=== PATIENT | male | born 1965 | race Two or more races ===

== ENCOUNTER 2025-07-14 08:15 | Inpatient (IN) | payer MEDICAID, OTHER ==
[~2025-07-14] VITALS: Ht 170.2 cm; Wt 89.5 kg
--- NOTE | 2025-07-14 09:02 | ED.PDOC ---
GI ASSESSMENT HPI Comments 60 year old male presents to the ED with a chief complaint of abdominal pain onset today (07/14/25) around midnight. Patient states he began experiencing diffused abdominal pain with intermittent radiation to LLQ as well as nausea, vomiting. Patient is a poor historian. Denies any PMHx as well as fever, chills, diarrhea, chest pain,shortness of breath, cough, cold, congestion. No other symptoms or modifying factor present at this time. Chief Complaint: Abdominal Pain Time Seen by MD: 08:50 Reviewed Notes: Medications, Allergies Allergies: Coded Allergies: NO KNOWN ALLERGIES (Unverified , 07/14/25) Information Source: Patient Mode of Arrival: Ambulatory Timing: Hours Duration: Since onset Prehospital treatment: None Quality: Sharp Severity: Moderate Recent: None Recent Hx of: None Pain Location: Diffuse Modifying Factors: Nothing Associated sign and symptoms: Nausea, Vomiting, Abdominal Pain Past Medical History PAST MEDICAL HISTORY: Denies Surgical History: Denies all surgeries Family History Family History: Reviewed,noncontributory to illness, No family hx of Cancer, No family hx of DM, No family hx of Heart mini, No family hx of HTN, No family hx ofKidney mini, No family hx of Liver mini, No family hx of Lung mini, No family hx of Stroke Social History Smoker: Non-Smoker Alcohol: Denies ETOH Use Drugs: Denies Drug Use Lives In: Home Constitutional: denies: chills, diaphoresis, fatigue, fever, malaise, sweats, weakness, others EENTM: denies: blurred vision, double vision, ear bleeding, ear discharge, ear drainage, ear pain, ear ringing, eye pain, eye redness, hearing loss, mouth pain, mouth swelling, nasal discharge, nose bleeding, nose congestion, nose pain, photophobia, tearing, throat pain, throat swelling, voice changes, others Respiratory: denies: cough, hemoptysis, orthopnea, SOB at rest, shortness of breath, SOB with excertion, stridor, wheezing, others Cardiovascular: denies: chest pain, dizzy spells, diaphoresis, Dyspnea on exertion, edema, irregular heart beat, left arm pain, lightheadedness, palpitations, PND, syncope, others Gastrointestinal: reports: abdominal pain, nausea, vomiting; denies: abdomen distended, blood streaked bowels, constipated, diarrhea, dysphagia, difficulty swallowing, hematemesis, melena, poor appetite, poor fluid intake, rectal bleeding, rectal pain, others Genitourinary: denies: burning, dysuria, flank pain, frequency, hematuria, incontinence, penile discharge, penile sore, pain, testicle pain, testicle swelling, urgency, others Neurological: denies: dizziness, fainting, headache, left sided numbness, left sided weakness, numbness, paresthesia, pre-existing deficit, right sided numbness, right sided weakness, seizure, speech problems, tingling, tremors, weakness, others Musculoskeletal: denies: back pain, gout, joint pain, joint swelling, muscle pain, muscle stiffness, neck pain, others Integumetry: denies: bruises, change in color, change in hair/nails, dryness, laceration, lesions, lumps, rash, wounds, others Allergic/Immunocompromised: denies: Difficulty Healing, Frequent Infections, Hives, Itching, others Hematologic/Lymphatic: denies: anemia, blood clots, easy bleeding, easy bruising, swollen glands, others Endocrine: denies: excessive hunger, excessive sweating, excessive thirst, excessive urination, flushing, intolerance to cold, intolerance to heat, unexplained weight gain, unexplained weight loss, others Psychiatric: denies: anxiety, bipolar disorder, depression, hopeless, panic disorder, schizophrenia, sleepless, suicidal, others All Other Systems: Reviewed and Negative Physical Exam General Appearance: Moderate Distress, Normal HEENT: Normal ENT Inspection, Pharynx Normal, TMs Normal Neck: Full Range of Motion, Non-Tender, Normal, Normal Inspection Respiratory: Chest Non-Tender, Lungs Clear, No Accessory Muscle Use, No Respiratory Distress, Normal Breath Sounds Cardiovascular: No Edema, No JVD, No Murmur, No Gallop, Normal Peripheral Pulses, Regular Rate/Rhythm Breast Exam: Deferred Gastrointestinal: No Organomegaly, Non Tender, No Pulsatile Mass, Normal Bowel Sounds, Soft Genitalia: Deferred Pelvic: Deferred Rectal: Deferred Extremities: No calf tenderness, Normal capillary refill, Normal inspection, Normal range of motion, Non-tender, No pedal edema Musculoskeletal : Apperance: Normal Neurologic: Alert, spring repairer helper hand II-XII nml as Tested, No Motor Deficits, Normal Affect, Normal Mood, No Sensory Deficits Cerebellar Function: Normal Reflexes: Normal Skin: Dry, Normal Color, Warm Peripheral Pulses: 3+ Radial (R), 3+ Radial (L) Lymphatic: No Adenopathy Was a procedure done? Was a procedure done?: No GI differential Dx Differential Diagnosis: Constipation, Diverticular disease, Esophagitis, Gastritis/PUD, Gastroenteritis X-Ray, Labs, Meds, VS Vital Signs Date Time Temp Pulse Resp B/P (MAP) Pulse Ox O2 Delivery O2 Flow Rate FiO2 07/14/25 08:54 97.9 83 18 136/78 95 97.9 Lab Test 07/14/25 09:10 Range/Units White Blood Count 18.1 H 4.4-10.8 10^3/uL Red Blood Count 5.58 4.5-5.90 10^6/uL Hemoglobin 15.7 13.5-17.5 g/dL Hematocrit 45.6 41.0-53.0 % Mean Corpuscular Volume 81.8 80.0-100.0 fL Mean Corpuscular Hemoglobin 28.2 28.0-32.0 pg Mean Corpuscular Hemoglobin Concent 34.5 32.0-36.0 g/dL Red Cell Distribution Width 14.0 11.8-14.3 % Platelet Count 199 140-450 10^3/uL Mean Platelet Volume 8.2 6.9-10.8 fL Neutrophils (%) (Auto) 90.0 H 37.0-80.0 % Lymphocytes (%) (Auto) 4.1 L 10.0-50.0 % Monocytes (%) (Auto) 5.6 0.0-12.0 % Eosinophils (%) (Auto) 0.0 0.0-7.0 % Basophils (%) (Auto) 0.3 0.0-2.0 % Neutrophils # (Auto) 16.3 H 1.6-8.6 10 ^3/uL Lymphocytes # (Auto) 0.7 0.4-5.4 10 ^3/uL Monocytes # (Auto) 1.0 0-1.3 10 ^3/uL Eosinophils # (Auto) 0 0-0.8 10 ^3/uL Basophils # (Auto) 0.1 0-0.2 10 ^3/uL Nucleated Red Blood Cells 0.1 % Sodium Level 135 L 136-145 mmol/L Potassium Level 3.6 3.5-5.1 mmol/L Chloride Level 98 98-107 mmol/L Carbon Dioxide Level 26 20-31 mmol/L Anion Gap 11 5-15 Blood Urea Nitrogen 8 L 9-23 mg/dL Creatinine 0.78 0.700-1.30 mg/dL Glomerular Filtration Rate Calc 103 >90 mL/min BUN/Creatinine Ratio 10.3 10.0-20.0 Serum Glucose 133 H 74-106 mg/dL Calcium Level 9.4 8.7-10.4 mg/dL Patient alert. Complaining of abdominal discomfort. Vitals stable. Answering questions. WBC elevated. Hemoglobin within normal limits. Establish intravenous access. Was given fluids. Was given Rocephin. Was given Flagyl. Continue monitoring. Time of 1ST Reevaluation: 09:20 Reevaluation 1ST: Unchanged Patient Education/Counseling: Diagnosis, Treatment, Prognosis Family Education/Counseling: No Family Present SEPSIS Sepsis Screen Date sepsis recognized/suspect: Jul 14, 2025 Time Sepsis recognized/suspect: 854 Recent Procedure: No On Antibiotic Therapy: No Respiratory Rate >20: No Heart Rate >90: No Temp<36 C (96.8 F) or >38.3 C: No SBP <90 or MAP <65 mmHG: No New Acute Mental Status Change: No Is the patient on CPAP, BIPAP,: No Physician Orders Ct Ab Pel Wo Con-No Oral Or Iv (07/14/25 10:26) Sodium Chloride 0.9% (07/14/25 10:30) Ceftriaxone 1gm/50ml (Rocephin) (07/14/25 10:30) Metronidazole 500mg/100ml (Flagyl 500mg/ (07/14/25 10:30) Vital Signs Date Time Temp Pulse Resp B/P (MAP) Pulse Ox O2 Delivery O2 Flow Rate FiO2 07/14/25 08:54 97.9 83 18 136/78 95 97.9 Laboratory Tests Test 07/14/25 09:10 White Blood Count 18.1 10^3/uL (4.4-10.8) H Departure 1 Departure Time of Disposition: 10:29 Impression: Primary Impression: Acute abdominal pain Disposition: ADMITTED INPATIENT Admit to: Med Surg Condition: Guarded Critical Care Note Critical Care Time?: No Stability Stability form required: No Heart Score Heart Score: Heart Score Response (Comments) Value History N/A 0 EKG N/A 0 Age N/A 0 Risk Factors N/A 0 Troponin N/A 0 Total 0 I personally scribed for RAMONA WHELAN MD ([email or web address]) on 07/14/25 at 09:02. Electronically submitted by Mimi Hurley ([email or web address]). RAMONA WHELAN MD Jul 14, 2025 09:02
[2025-07-14 09:27] LABS: Hematocrit 45.6 % (41.0-53.0); Hemoglobin 15.7 g/dL (13.5-17.5); Mean Corpuscular Hemoglobin 28.2 pg (28.0-32.0); Mean Corpuscular Volume 81.8 fL (80.0-100.0); Nucleated Red Blood Cells % 0.1 %
[2025-07-14 09:34] LABS: Chloride 98 mmol/L (98-107); Potassium 3.6 mmol/L (3.5-5.1)
[2025-07-14 09:35] LABS: Anion Gap 11 (5-15); Carbon Dioxide 26 mmol/L (20-31)
[2025-07-14 09:36] LABS: Calcium 9.4 mg/dL (8.7-10.4)
[2025-07-14 09:40] LABS: BUN/Creatinine Ratio 10.3 (10.0-20.0)
[2025-07-14 09:45] LABS: Blood Urea Nitrogen 8 mg/dL (9-23); Glucose 133 mg/dL (74-106); Sodium 135 mmol/L (136-145)
[2025-07-14] MEDS: SODIUM CHLORIDE 0.9% 1,000 ML IV ONE (10:30)
--- NOTE | 2025-07-14 11:12 | DVH ---
CLINICAL INFORMATION: Colitis. Abdominal pain. TECHNIQUE: Axial CT images of the abdomen and pelvis were obtained without IV contrast. Coronal and s agittal reformatted images were obtained, reviewed, and stored. Evaluation of the parenchymal organs is limited without IV contrast. Evaluation of the bowel and mesentery is limited without oral contras t. All CT scans at this medical facility are performed using dose modulation techniques as appropriat e to a performed exam including the following: Automated exposure control was utilized; adjustment of the MA and/or KV according to patient size; and use of iterative reconstruction technique. CTDIvol = 16.55 mGy DLP = 1045.26 mGy-cm COMPARISON: None FINDINGS: Lung bases: Mild atelectasis in the lung bases. Liver: Small subcentimeter low-density lesion in the posterior right hepatic lobe, possibly a cyst, b ut too small to characterize. Biliary: Moderately distended gallbladder with multiple peripherally calcified gallstones and mild ad jacent stranding. Gallbladder wall appears thickened. Possible trace pericholecystic fluid. No bilia ry ductal dilatation. Spleen: Unremarkable. Pancreas: Grossly unremarkable in its noncontrast enhanced appearance. Adrenal glands: Unremarkable. No mass. Kidneys: No hydronephrosis. No renal or ureteral calculi. Aorta/Vascular: Mild scattered atherosclerotic calcification. No abdominal aortic aneurysm. Retroperitoneum: No mass or lymphadenopathy. Bowel/mesentery: Nonspecific nondilated fluid-filled small bowel loops. No small bowel obstruction. A ppendix is thickened, measuring up to 0.9 cm in diameter. No periappendiceal stranding visualized to suggest acute appendicitis. Early acute appendicitis can not be completely excluded. Pelvic organs: Grossly unremarkable. Bladder: Unremarkable. No mass. Abdominal wall: Small fat containing indirect left inguinal hernia. Bones: No acute fracture or suspicious intraosseous lesion. IMPRESSION: 1. Distended gallbladder containing multiple peripherally calcified gallstones. Mild adjacent inflamm atory stranding. Gallbladder wall appears thickened. Possible trace pericholecystic fluid. Findings may be seen with acute cholecystitis in the appropriate clinical setting. Ultrasound could be obtain ed to further characterize. 2. Appendix is mildly thickened. No definite periappendiceal stranding visualized. Early acute appen dicitis can not be excluded in the appropriate clinical setting, given the thickened appendix. Corre late with clinical findings. 3. Nonspecific nondilated fluid-filled small bowel loops. Findings may be seen with ileus or enteriti s in the appropriate clinical setting. No small bowel obstruction. Critical findings Critical Result: Suspected acute cholecystitis. Thickened appendix, can not exclude early acute appen dicitis in the appropriate clinical setting. Findings discussed with RAMONA SALAS at 07/14/2025 01:09 PM CDT, and acknowledged receipt an d understanding of the findings. ..
--- NOTE | 2025-07-14 12:52 | DVH ---
INDICATION: roscoe ; abdominal pain called for acute cholecystitis TECHNIQUE: Multiple real-time sonographic images were obtained of the right upper quadrant. COMPARISON: 07/14/2025 FINDINGS: The liver demonstrates homogenous echotexture without focal mass lesions. The liver measure s 17 cm. There is no intrahepatic or extrahepatic ductal dilatation. The common duct measures 6 mm although evaluation is suboptimal given obscuration from bowel gas. Gallstones. The gallbladder wall measures 9 mm and is thickened . Sonographic Wilson's reportedly po sitive The right kidney measures 10 cm. The right kidney is normal in contour, size, and shape. The echogen icity is normal. There is no hydronephrosis. The pancreas is not well visualized due to overlying bowel gas. IMPRESSION: Gallstones with gallbladder wall thickening. Sonographic Wilson's reportedly positive. Findings can be seen in the setting of acute cholecystitis.
--- NOTE | 2025-07-14 14:18 | DVHINCON2 ---
Consultation - Surgical Date Seen: Jul 14, 2025 Referring Physician Reason for Consultation Cholecystitis History of Present Illness History of Present Illness Mr. Herr is a 60-year-old male who presents to the ED after 3 days of right- sided abdominal pain patient states that the pain is associated with nausea but no vomiting. Since the pain started he also has been constipated, usually goes to the bathroom daily. His last BM was 2 days ago. Endorses subjective fevers, denies vomiting and changes in urinary habits. Denies acholic stools, darkening of urine, yellowing of eyes. States that the pain is worse when he lays flat, but since arriving into the ED in getting the antibiotics he has been feeling better and abdomen is not as painful. Past Medical/Surgical History Past Medical/Surgical History PMH/PSH denies Family and Social History Family and Social History Family history noncontributory ETOH/T Ob/drugs denies Allergies and medications Allergies: Coded Allergies: NO KNOWN ALLERGIES (Unverified , 07/14/25) Review of systems Review of Systems: Deferred Examination Vital signs Vital Signs Date Time Temp Pulse Resp B/P (MAP) Pulse Ox O2 Delivery O2 Flow Rate FiO2 07/14/25 11:17 74 18 97 Room Air 07/14/25 11:17 153/78 (103) 07/14/25 08:54 97.9 97.9 Laboratory Labs Test 07/14/25 09:10 Range/Units White Blood Count 18.1 H 4.4-10.8 10^3/uL Red Blood Count 5.58 4.5-5.90 10^6/uL Hemoglobin 15.7 13.5-17.5 g/dL Hematocrit 45.6 41.0-53.0 % Mean Corpuscular Volume 81.8 80.0-100.0 fL Mean Corpuscular Hemoglobin 28.2 28.0-32.0 pg Mean Corpuscular Hemoglobin Concent 34.5 32.0-36.0 g/dL Red Cell Distribution Width 14.0 11.8-14.3 % Platelet Count 199 140-450 10^3/uL Mean Platelet Volume 8.2 6.9-10.8 fL Neutrophils (%) (Auto) 90.0 H 37.0-80.0 % Lymphocytes (%) (Auto) 4.1 L 10.0-50.0 % Monocytes (%) (Auto) 5.6 0.0-12.0 % Eosinophils (%) (Auto) 0.0 0.0-7.0 % Basophils (%) (Auto) 0.3 0.0-2.0 % Neutrophils # (Auto) 16.3 H 1.6-8.6 10 ^3/uL Lymphocytes # (Auto) 0.7 0.4-5.4 10 ^3/uL Monocytes # (Auto) 1.0 0-1.3 10 ^3/uL Eosinophils # (Auto) 0 0-0.8 10 ^3/uL Basophils # (Auto) 0.1 0-0.2 10 ^3/uL Nucleated Red Blood Cells 0.1 % Sodium Level 135 L 136-145 mmol/L Potassium Level 3.6 3.5-5.1 mmol/L Chloride Level 98 98-107 mmol/L Carbon Dioxide Level 26 20-31 mmol/L Anion Gap 11 5-15 Blood Urea Nitrogen 8 L 9-23 mg/dL Creatinine 0.78 0.700-1.30 mg/dL Glomerular Filtration Rate Calc 103 >90 mL/min BUN/Creatinine Ratio 10.3 10.0-20.0 Serum Glucose 133 H 74-106 mg/dL Calcium Level 9.4 8.7-10.4 mg/dL Examination: GENERAL:Normal, HEENT:Normal (No icterus), ABDOMEN:Abnormal (Nondistended, no scars, soft, depressible, right hemiabdomen tenderness worse in the right midabdomen, no rebound, no guarding) Problem List/Assessment/Plan Problems: (1) Cholecystitis Assessment and Plan Mr. Herr is a 60-year-old male who presented with abdominal pain for the last 3 days to the ED. ultrasound was done and it shows 3 large gallstones within the lumen of the gallbladder and 1 of them being at the neck of the gallbladder, pericholecystic fluid is seen, also has gallbladder wall thickening to a 0.6 mm. These findings are consistent with acute cholecystitis. I also reviewed the patient's CT, on the CT the appendix appears a little bit inflamed with some stranding around it no fecalith seen. Given both the ultrasound CT findings and coupled with the physical exam patient likely has acute cholecystitis, he may also have a component of early acute appendicitis. Patient will benefit from diagnostic laparoscopy, laparoscopic cholecystectomy, and possible appendectomy. I explained the findings in detail to the patient and what my recommendations were. Patient does not want to have surgery at this point he will rather attempt nonsurgical management with antibiotics. I also explained that if we wait gallbladder can get more inflamed, which can make it dangerous for surgical removal and thus we might end up putting a roscoe tube instead. Also explained that if he does have appendicitis, inflammation good continue to progress and he could end up with perforated appendicitis. Patient understood everything and still wants to proceed with nonoperative management at this point. Recommend admission for nonoperative management. 1. Okay for clear liquid diet 2. NPO at midnight 3. Continue with IV antibiotics ceftriaxone and Flagyl 4. A.m. labs: CBC, CMP, direct bilirubin level Plan discussed with Plan discussed with: Patient Visit Coding Surgery Date of Service if different f: Jul 14, 2025 Billing Provider: MICHELLE ARTHUR MD Surgery Visit Codes: 44980 - INP CONSULT <110 MIN MICHELLE ARTHUR MD Jul 14, 2025 14:17
[2025-07-14] MEDS ORDERED: ACETAMINOPHEN 325 MG TAB PO PRN (15:00)
[2025-07-14] MEDS ORDERED: NITROGLYCERIN 0.4 MG SL TAB SL PRN (15:00)
[2025-07-14] MEDS ORDERED: ONDANSETRON HCL 4 MG/2 ML VIAL IV PRN (15:00)
[2025-07-14] MEDS ORDERED: MORPHINE SULFATE INJ 2 MG/ml SYRG IV PRN (15:00)
--- NOTE | 2025-07-14 15:39 | DVHHPRES ---
History of Present Illness Resident Creating Document: FELIX CALDERON RESIDENT History of Present Illness Fareed Herr is a 60-year-old male presented to the ED with a chief complaint of pain abdomen since 3 days. The patient mentions he had pain in the abdomen mostly in the right lower abdomen, radiating to the right upper abdomen and epigastric area. The patient mentions that the pain increased with eating, also has had decreased appetite in the last 3 days because of the pain. Describes the pain as an 8/10 in intensity and a dull ache. He states that the pain is mo stly at night and he can not sleep because of the pain. He took Tylenol but it did not relieve the pain. The patient also mentions he has not had a bowel movement in the last 3 days and right side of the abdomen feels hard and warm. He had some fever at home which was unrecorded. He has a history of similar abdominal pain 2 months back which resolved on its own in a couple of days. Past medical history: None Past surgical history: None Social & Personal history: Lives at home with family Smoking: Denies Alcohol: Occasional consumption, quit 20 years back Drugs: Denies Allergies: No known allergies Past Surgical History: None Smoke: No Drugs: None Review of Systems Review of Systems Patient seen and examined at bedside. Patient is alert and oriented to time, p lace person and responding to all questions. Eyes: No Pain, No Vision change, No Conjunctivae inflammation, No Eyelid inflammation, No Redness ENT: No Ear pain, No Ear discharge, No Nose pain, No Nose discharge, No Nose congestion, No Mouth pain, No Mouth swelling, No Throat pain, No Throat swelling Cardiovascular: No Chest Pain, No Palpitations, No Orthopnea, No Paroxysmal No Dyspnea, No Edema, No Lt Headedness Respiratory: No Cough, No Dry, No Shortness of breath, No SOB with exertion, No Wheezing, No Hemoptysis, No Pleuritic Pain, No Sputum Gastrointestinal: No Nausea, No Vomiting, Abdominal Pain, No Diarrhea, Constipation, No Melena, No Hematochezia Genitourinary: No Dysuria, No Frequency, No Incontinence, No Hematuria, No Retention Gastrointestinal: Abdominal Pain, Constipation Allergies: Coded Allergies: NO KNOWN ALLERGIES (Unverified , 07/14/25) Medications Current Medications Medications Dose Ordered Sig/Petey Route Start Time Stop Time Status Last Admin Dose Admin Sodium Chloride 1,000 ml @ 60 mls/hr [id number] IV 07/14/25 15:00 UNV Ondansetron HCl 4 mg Q4HP PRN IV 07/14/25 15:00 UNV Acetaminophen 650 mg Q6HP PRN PO 07/14/25 15:00 UNV Nitroglycerin 0.4 mg Q5MINP PRN SL 07/14/25 15:00 UNV Morphine Sulfate 2 mg Q30M PRN IV 07/14/25 15:00 UNV Exam Vital Signs Vital Signs Date Time Temp Pulse Resp B/P (MAP) Pulse Ox O2 Delivery O2 Flow Rate FiO2 07/14/25 11:17 74 18 97 Room Air 07/14/25 11:17 153/78 (103) 07/14/25 08:54 97.9 97.9 Exam General Appearance: Cooperative. Well developed. Well nourished. NAD Head Exam: Normal inspection Neck Exam: Normal inspection. Non-tender. Normal alignment Pulmonary/Respiratory: Chest non-tender. Clear bilateral breath sounds, no crackles, no wheezing. Cardiovascular/Chest: Regular rate and rhythm. No murmurs. No JVD. Peripheral Pulses: 2+ Radial (R). 2+ Radial (L). 2+ Pedal (R). 2+ Pedal (L) Abdominal Exam: Tenderness in the right upper quadrant, Normal bowel sounds no visible veins, No hepatospenomegaly. No masses Ankle Exam: Negative ankle edema Lower extremities: Negative lower extremity edema Neuro/Mental Status: A&O x4. Coherent. Thoughts/Psych: Normal thought pattern. Appropriate mood and affect. Good judgement and insight Skin Exam: Normal inspection. Normal color. Warm. Dry Labs/Xrays Labs Test 07/14/25 09:10 Range/Units White Blood Count 18.1 H 4.4-10.8 10^3/uL Red Blood Count 5.58 4.5-5.90 10^6/uL Hemoglobin 15.7 13.5-17.5 g/dL Hematocrit 45.6 41.0-53.0 % Mean Corpuscular Volume 81.8 80.0-100.0 fL Mean Corpuscular Hemoglobin 28.2 28.0-32.0 pg Mean Corpuscular Hemoglobin Concent 34.5 32.0-36.0 g/dL Red Cell Distribution Width 14.0 11.8-14.3 % Platelet Count 199 140-450 10^3/uL Mean Platelet Volume 8.2 6.9-10.8 fL Neutrophils (%) (Auto) 90.0 H 37.0-80.0 % Lymphocytes (%) (Auto) 4.1 L 10.0-50.0 % Monocytes (%) (Auto) 5.6 0.0-12.0 % Eosinophils (%) (Auto) 0.0 0.0-7.0 % Basophils (%) (Auto) 0.3 0.0-2.0 % Neutrophils # (Auto) 16.3 H 1.6-8.6 10 ^3/uL Lymphocytes # (Auto) 0.7 0.4-5.4 10 ^3/uL Monocytes # (Auto) 1.0 0-1.3 10 ^3/uL Eosinophils # (Auto) 0 0-0.8 10 ^3/uL Basophils # (Auto) 0.1 0-0.2 10 ^3/uL Nucleated Red Blood Cells 0.1 % Sodium Level 135 L 136-145 mmol/L Potassium Level 3.6 3.5-5.1 mmol/L Chloride Level 98 98-107 mmol/L Carbon Dioxide Level 26 20-31 mmol/L Anion Gap 11 5-15 Blood Urea Nitrogen 8 L 9-23 mg/dL Creatinine 0.78 0.700-1.30 mg/dL Glomerular Filtration Rate Calc 103 >90 mL/min BUN/Creatinine Ratio 10.3 10.0-20.0 Serum Glucose 133 H 74-106 mg/dL Calcium Level 9.4 8.7-10.4 mg/dL SEPSIS Sepsis Screen Date sepsis recognized/suspect: Jul 14, 2025 Time Sepsis recognized/suspect: 854 Recent Procedure: No On Antibiotic Therapy: No Respiratory Rate >20: No Heart Rate >90: No Temp<36 C (96.8 F) or >38.3 C: No SBP <90 or MAP <65 mmHG: No New Acute Mental Status Change: No Is the patient on CPAP, BIPAP,: No Physician Orders Ct Ab Pel Wo Con-No Oral Or Iv (07/14/25 10:26) Gallbladder (07/14/25 12:02) * Surgical Consult (07/14/25 ) Admit (07/14/25 14:48) Allergies (07/14/25 14:48) Code Status (07/14/25 14:48) Sodium Chloride 0.9% (07/14/25 15:00) Ondansetron Hcl (Zofran) (07/14/25 15:00) Complete Blood Count (07/15/25 04:00) Comprehensive Metabolic Panel (07/15/25 04:00) Npo (Nothing By Mouth) Diet (07/14/25 Dinner) Condition: Fair (07/14/25 14:48) Acetaminophen Tablet (Tylenol Tablet) (07/14/25 15:00) Nitroglycerin Sublingual (Ntrostat Subli (07/14/25 15:00) Morphine Sulfate Injection (07/14/25 15:00) Oxygen By Nasal Cannula (07/14/25 14:48) Stat Ekg For Chest Pain (07/14/25 14:48) Notify Md Of Changes From Base (07/14/25 14:48) Contract Paralegal For 24 Hours (07/14/25 14:48) Emergency Dysrhythmia Protocol (07/14/25 14:48) Rhythm Strips Once Every Shift (07/14/25 14:48) Hepatic Panel (07/14/25 15:25) Covid19 Antigen Татьяна (07/14/25 ) Rapid Influenza A&B (07/14/25 15:25) Lactic Acid W/ Reflex Order (07/14/25 15:25) Urinalysis (07/14/25 15:25) Hemoglobin A1c (07/14/25 15:25) Vital Signs Date Time Temp Pulse Resp B/P (MAP) Pulse Ox O2 Delivery O2 Flow Rate FiO2 07/14/25 11:17 74 18 97 Room Air 07/14/25 11:17 78 16 153/78 (103) 97 07/14/25 08:54 97.9 83 18 136/78 95 97.9 Laboratory Tests Test 07/14/25 09:10 White Blood Count 18.1 10^3/uL (4.4-10.8) H Medications Medications Dose Ordered Sig/Petey Route Start Time Stop Time Status Last Admin Dose Admin Metronidazole 100 ml @ 100 mls/hr ONCE ONCE IV 07/14/25 10:30 07/14/25 11:29 DC 07/14/25 14:08 100 MLS/HR Sodium Chloride 1,000 ml @ 1,000 mls/hr Q1H ONCE IV 07/14/25 10:30 07/14/25 11:29 DC 07/14/25 10:30 1,000 MLS/HR Assessment/Plan Assessment/Plan Acute calculous cholecystitis -CT abdomen/pelvis-Distended gallbladder containing multiple peripherally calcified gallstones. Mild adjacent inflammatory stranding. Gallbladder wall appears thickened. -Gall bladder ultrasound- Gallstones with gallbladder wall thickening. Sono graphic Wilson's reportedly positive. -white count 18.1 -pain management -IV antibiotics ceftriaxone and flagyl -clear liquids for now -keep NPO after midnight -Surgical consult Possible Acute appendicitis -CT abdomen/pelvis-Appendix is mildly thickened. No definite periappendiceal stranding visualized. Early acute appendicitis can not be excluded in the appr [facility] clinical setting, given the thickened appendix. -as above PUD prophylaxis: not Indicated DVT prophylaxis: Not indicated Goals of care: Full code, discussed for >23 minutes Plan discussed with patient Plan discussed with Dr Contreras Plan discussed with: Patient My Orders Orders - FELIX CALDERON RESIDENT Procedure Category Date Status Time Admit ADMIT 07/14/25 Transmitted 14:48 Allergies [facility] 07/14/25 In Process 14:48 Code Status CODE 07/14/25 Transmitted 14:48 Sodium Chloride 0.9% PHA 07/14/25 Logged 15:00 Ondansetron Hcl PHA 07/14/25 Logged (Zofran) 15:00 Complete Blood Count LAB 07/15/25 Verified 04:00 Comprehensive LAB 07/15/25 Verified Metabolic Panel 04:00 Npo (Nothing By DIET 07/14/25 Transmitted Mouth) Diet Dinner Condition: Fair BOBBY 07/14/25 In Process 14:48 Acetaminophen Tablet PHA 07/14/25 Logged (Tylenol Tablet) 15:00 Nitroglycerin PHA 07/14/25 Logged Sublingual (Ntrostat 15:00 Morphine Sulfate PHA 07/14/25 Logged Injection 15:00 Oxygen By Nasal RT 07/14/25 Transmitted Cannula 14:48 Stat Ekg For Chest BOBBY 07/14/25 In Process Pain 14:48 Notify Of Changes BOBBY 07/14/25 In Process From Base 14:48 Contract Paralegal For [facility] 07/14/25 In Process 24 Hours 14:48 Emergency Dysrhythmia BOBBY 07/14/25 In Process Protocol 14:48 Rhythm Strips Once BOBBY 07/14/25 In Process Every Shift 14:48 Hepatic Panel LAB 07/14/25 In Process 15:25 Covid19 Antigen Татьяна LAB 07/14/25 Logged Rapid Influenza A&B LAB 07/14/25 Logged 15:25 Lactic Acid W/ Reflex LAB 07/14/25 Logged Order 15:25 Urinalysis LAB 07/14/25 Logged 15:25 Hemoglobin A1c LAB 07/14/25 In Process 15:25 FELIX CALDERON RESIDENT Jul 14, 2025 15:39 SEAN ESTRADA RESIDENT Jul 14, 2025 19:01
[2025-07-14 16:03] LABS: Alanine Aminotransferase 17.0 U/L (7-40); Albumin 4.4 g/dL (3.2-4.8); Alkaline Phosphatase 77.0 U/L (46-116); Total Protein 8.2 g/dL (5.7-8.2)
[2025-07-14 16:09] LABS: Bilirubin, Direct 0.8 mg/dL (<0.3); Bilirubin, Total 2.3 mg/dL (0.2-1.0)
[2025-07-14 20:22] LABS: INR 1.22 (0.9-1.15); Partial Thromboplastin Time 34.3 SEC (24.5-34.5); Prothrombin Time 12.7 sec (9.3-11.8)
--- NOTE | 2025-07-14 21:17 | DVH ---
CHEST RADIOGRAPH Indication: preop Technique: Single frontal view of the chest was obtained Comparison: None FINDINGS: Lines and Tubes: None Lungs: No focal consolidation. Pleura: No effusion. No pneumothorax. Cardiomediastinal contours: Unremarkable Bones: No acute osseous abnormality. IMPRESSION: 1. No acute cardiopulmonary disease.
[2025-07-14] MEDS: SODIUM CHLORIDE 0.9% 1,000 ML IV SCH (22:48)
[2025-07-15 08:59] LABS: Hematocrit 43.8 % (41.0-53.0); Hemoglobin 14.8 g/dL (13.5-17.5); Mean Corpuscular Hemoglobin 27.8 pg (28.0-32.0); Mean Corpuscular Volume 82.4 fL (80.0-100.0); Nucleated Red Blood Cells % 0.1 %
[2025-07-15 09:00] VITALS: BP 119/80; PULSE 94; RESP 18; TEMP 97.8; O2SAT 97
[2025-07-15 09:17] LABS: Alanine Aminotransferase 16 U/L (7-40); Alkaline Phosphatase 74 U/L (46-116); Calcium 9.0 mg/dL (8.7-10.4)
[2025-07-15 09:18] LABS: Albumin 4.1 g/dL (3.2-4.8); Anion Gap 10 (5-15); BUN/Creatinine Ratio 12.7 (10.0-20.0); Blood Urea Nitrogen 10 mg/dL (9-23); Carbon Dioxide 25 mmol/L (20-31); Chloride 100 mmol/L (98-107); Potassium 3.6 mmol/L (3.5-5.1); Total Protein 7.8 g/dL (5.7-8.2)
[2025-07-15 09:19] LABS: Bilirubin, Total 1.6 mg/dL (0.2-1.0); Glucose 107 mg/dL (74-106); Sodium 135 mmol/L (136-145)
[2025-07-15 12:08] LABS: COVID19 ANTIGEN SOFIA FIA NEGATIVE (NEGATIVE)
[2025-07-15 13:00] VITALS: BP 122/86; PULSE 99; RESP 18; TEMP 97.8; O2SAT 97
[2025-07-15 15:07] VITALS: BP 146/76; PULSE 75; RESP 18; TEMP 98.5; O2SAT 99
--- NOTE | 2025-07-15 15:23 | DVHPNRES ---
Progress Note Date Seen: Jul 15, 2025 Resident Creating Document: FELIX CALDERON RESIDENT Medical Necessity Reason Pt with a Central, PICC or Fol: No Subjective Review of Systems Fareed Herr is a 60-year-old male presented to the ED with a chief complaint of pain abdomen since 3 days. The patient mentions he had pain in the abdomen mostly in the right lower abdomen, radiating to the right upper abdomen and epigastric area. The patient mentions that the pain increased with eating, also has had decreased appetite in the last 3 days because of the pain. Describes the pain as an 8/10 in intensity and a dull ache. He states that the pain is mostly at night and he can not sleep because of the pain. He took Tylenol but it did not relieve the pain. The patient also mentions he has not had a bowel movement in the last 3 days and right side of the abdomen feels hard and warm. He had some fever at home which was unrecorded. He has a history of similar abdominal pain 2 months back which resolved on its own in a couple of days. Past medical history: None Past surgical history: None Social & Personal history: Lives at home with family Smoking: Denies Alcohol: Occasional consumption, quit 20 years back Drugs: Denies Allergies: No known allergies Past Surgical History: None Smoke: No Drugs: None Patient seen and examined at bedside. Patient is alert and oriented to time, place person and responding to all questions. Eyes: No Pain, No Vision change, No Conjunctivae inflammation, No Eyelid inflammation, No Redness ENT: No Ear pain, No Ear discharge, No Nose pain, No Nose discharge, No Nose congestion, No Mouth pain, No Mouth swelling, No Throat pain, No Throat swelling Cardiovascular: No Chest Pain, No Palpitations, No Orthopnea, No Paroxysmal No Dyspnea, No Edema, No Lt Headedness Respiratory: No Cough, No Dry, No Shortness of breath, No SOB with exertion, No Wheezing, No Hemoptysis, No Pleuritic Pain, No Sputum Gastrointestinal: No Nausea, No Vomiting, Abdominal Pain, No Diarrhea, Constipation, No Melena, No Hematochezia Genitourinary: No Dysuria, No Frequency, No Incontinence, No Hematuria, No Retention Gastrointestinal: Abdominal Pain, Constipation Allergies: Coded Allergies: NO KNOWN ALLERGIES (Unverified , 07/14/25) 07/15- On evaluation today, the patient stated that the abdominal pain had reduced. White count today was 15.5. He was explained about recurrent symptoms if he does not get the surgery, but the patient stated that he would not like to have the surgery and would want to proceed only with IV antibiotics. Patient will possibly be discharged tomorrow if he is clinically stable. Objective vital signs Vital Sign Date Time Temp Pulse Resp B/P (MAP) Pulse Ox O2 Delivery O2 Flow Rate FiO2 07/15/25 14:04 98.3 78 20 148/77 (100) 97 98.3 07/15/25 03:29 Room Air medications Current Medications Medications Dose Ordered Sig/Petey Route Start Time Stop Time Status Last Admin Dose Admin Sodium Chloride 1,000 ml @ 60 mls/hr [id number] IV 07/14/25 15:00 Ondansetron HCl 4 mg Q4HP PRN IV 07/14/25 15:00 Acetaminophen 650 mg Q6HP PRN PO 07/14/25 15:00 Nitroglycerin 0.4 mg Q5MINP PRN SL 07/14/25 15:00 Morphine Sulfate 2 mg Q30M PRN IV 07/14/25 15:00 Ceftriaxone Sodium 50 ml @ 100 mls/hr DAILY@09 IV 07/15/25 09:00 07/15/25 09:44 100 MLS/HR Metronidazole 100 ml @ 100 mls/hr Q8HR IV 07/14/25 22:00 07/15/25 09:44 100 MLS/HR Examination General Appearance: Cooperative. Well developed. Well nourished. NAD Head Exam: Normal inspection Neck Exam: Normal inspection. Non-tender. Normal alignment Pulmonary/Respiratory: Chest non-tender. Clear bilateral breath sounds, no crackles, no wheezing. Cardiovascular/Chest: Regular rate and rhythm. No murmurs. No JVD. Peripheral Pulses: 2+ Radial (R). 2+ Radial (L). 2+ Pedal (R). 2+ Pedal (L) Abdominal Exam: Tenderness in the right upper quadrant, Normal bowel sounds no visible veins, No hepatospenomegaly. No masses Ankle Exam: Negative ankle edema Lower extremities: Negative lower extremity edema Neuro/Mental Status: A&O x4. Coherent. Thoughts/Psych: Normal thought pattern. Appropriate mood and affect. Good judgement and insight Skin Exam: Normal inspection. Normal color. Warm. Dry laboratory and microbiology Laboratory Tests 07/15/25 08:46 Test 07/15/25 08:46 Range/Units Serum Glucose 107 H 74-106 mg/dL Labs and/or images reviewed: Labs reviewed by me, Image(s) reviewed by me Problem List/Assessment/Plan Problem List/Assessment/Plan Acute calculous cholecystitis -CT abdomen/pelvis-Distended gallbladder containing multiple peripherally calcified gallstones. Mild adjacent inflammatory stranding. Gallbladder wall appears thickened. -Gall bladder ultrasound- Gallstones with gallbladder wall thickening. Sonographic Wilson's reportedly positive. -white count 15.5 -pain management -IV antibiotics ceftriaxone and flagyl -clear liquids for now -keep NPO after midnight -Surgical consult Possible Acute appendicitis -CT abdomen/pelvis-Appendix is mildly thickened. No definite periappendiceal stranding visualized. Early acute appendicitis can not be excluded in the appropriate clinical setting, given the thickened appendix. -as above PUD prophylaxis: not Indicated DVT prophylaxis: Not indicated Goals of care: Full code, discussed for >23 minutes Plan discussed with patient Plan discussed with Dr Contreras Plan discussed with: Patient My Orders My Orders Orders - FELIX CALDERON RESIDENT Procedure Category Date Status Time Urinalysis LAB 07/14/25 Logged 15:25 Ceftriaxone 1gm/50ml PHA 07/15/25 In Process (Rocephin) 09:00 Metronidazole PHA 07/14/25 In Process 500mg/100ml (Flagyl 22:00 FELIX CALDERON RESIDENT Jul 15, 2025 15:23
--- NOTE | 2025-07-15 16:29 | DVHPN2 ---
Progress Note - Surgical Objective Vital signs Vital Sign Date Time Temp Pulse Resp B/P (MAP) Pulse Ox O2 Delivery O2 Flow Rate FiO2 07/15/25 15:07 75 18 99 Room Air* 0 21 07/15/25 15:07 98.5 146/76 (99) 98.5 Medications Current Medications Medications Dose Ordered Sig/Petey Route Start Time Stop Time Status Last Admin Dose Admin Sodium Chloride 1,000 ml @ 60 mls/hr [id number] IV 07/14/25 15:00 Ondansetron HCl 4 mg Q4HP PRN IV 07/14/25 15:00 Acetaminophen 650 mg Q6HP PRN PO 07/14/25 15:00 Nitroglycerin 0.4 mg Q5MINP PRN SL 07/14/25 15:00 Morphine Sulfate 2 mg Q30M PRN IV 07/14/25 15:00 Ceftriaxone Sodium 50 ml @ 100 mls/hr DAILY@09 IV 07/15/25 09:00 07/15/25 09:44 100 MLS/HR Metronidazole 100 ml @ 100 mls/hr Q8HR IV 07/14/25 22:00 07/15/25 09:44 100 MLS/HR Laboratory Laboratory Tests 07/15/25 08:46 Test 07/15/25 08:46 Range/Units Serum Glucose 107 H 74-106 mg/dL Problem List/Assessment/Plan Assessment and Plan Went to see the patient in the ED, he was supposed to be in the lobby, I was not able to localize the patient. Patient was not seen MICHELLE ARTHUR MD Jul 15, 2025 16:29
[2025-07-15 17:00] VITALS: BP 140/78; PULSE 76; RESP 16; TEMP 99.5; O2SAT 95
[2025-07-15 21:00] VITALS: BP 122/61; PULSE 85; RESP 16; TEMP 99; O2SAT 94
[2025-07-16] VITALS (8 sets, daily range): BP systolic 120–154; BP diastolic 53–82; PULSE 67–83; RESP 12–18; TEMP 98.3–99.5; O2SAT 95–99
[2025-07-16 06:30] LABS: Anion Gap 14 (5-15); Carbon Dioxide 23 mmol/L (20-31); Chloride 100 mmol/L (98-107); Potassium 3.2 mmol/L (3.5-5.1); Sodium 137 mmol/L (136-145)
[2025-07-16 06:31] LABS: Calcium 8.9 mg/dL (8.7-10.4)
[2025-07-16 06:36] LABS: BUN/Creatinine Ratio 15.1 (10.0-20.0); Blood Urea Nitrogen 11 mg/dL (9-23); Glucose 92 mg/dL (74-106)
[2025-07-16 06:46] LABS: Hematocrit 40.3 % (41.0-53.0); Hemoglobin 13.7 g/dL (13.5-17.5); Mean Corpuscular Hemoglobin 28.1 pg (28.0-32.0); Mean Corpuscular Volume 82.4 fL (80.0-100.0); Nucleated Red Blood Cells % 0.0 %
[2025-07-16] MEDS: POTASSIUM CHL 20MEQ/100ML 100 ML IV SCH (08:40)
--- NOTE | 2025-07-16 12:05 | DVHPN2 ---
Progress Note - Surgical Date Seen: Jul 16, 2025 Post op day Post op day: 0 Subjective Patient reports: Feels better (Feels slightly better still having right upper quadrant abdominal pain, right lower quadrant pain has subsided.) Review of Systems: Deferred Objective Vital signs Vital Sign Date Time Temp Pulse Resp B/P (MAP) Pulse Ox O2 Delivery O2 Flow Rate FiO2 07/16/25 09:00 98.4 67 18 139/53 (81) 96 98.4 07/16/25 08:00 Room Air* 0 21 Total Intake and Output 07/15/25 07/15/25 07/16/25 15:00 23:00 07:00 Intake Total 1120 ml 0 ml 480 ml Balance 1120 ml 0 ml 480 ml Medications Current Medications Medications Dose Ordered Sig/Petey Route Start Time Stop Time Status Last Admin Dose Admin Sodium Chloride 1,000 ml @ 60 mls/hr [id number] IV 07/14/25 15:00 07/16/25 00:20 60 MLS/HR Ondansetron HCl 4 mg Q4HP PRN IV 07/14/25 15:00 Acetaminophen 650 mg Q6HP PRN PO 07/14/25 15:00 Nitroglycerin 0.4 mg Q5MINP PRN SL 07/14/25 15:00 Morphine Sulfate 2 mg Q30M PRN IV 07/14/25 15:00 Ceftriaxone Sodium 50 ml @ 100 mls/hr DAILY@09 IV 07/15/25 09:00 07/16/25 10:59 100 MLS/HR Metronidazole 100 ml @ 100 mls/hr Q8H IV 07/16/25 15:00 Laboratory Laboratory Tests 07/16/25 05:40 Test 07/16/25 05:40 Range/Units Serum Glucose 92 74-106 mg/dL Examination: GENERAL:Normal, ABDOMEN:Abnormal (Nondistended, soft, depressible, mild right upper quadrant tenderness, no rebound, no guarding) Problem List/Assessment/Plan Assessment and Plan Mr. Herr is a 60-year-old male who presented 2 days ago to the ED with right upper quadrant abdominal pain and a diagnosis of acute cholecystitis. On CT imaging patient also had borderline inflammation of the appendix. At that time I offered laparoscopic cholecystectomy with additional possible appendectomy, depending on the health of the appendix looked intraoperatively. Patient wanted to trial antibiotics only without surgical intervention. Pain has improved but patient still has a white count of 12 and has not been able to eat anything. Today again I also offered surgery, and patient is amenable to surgical intervention. I will consent the patient for laparoscopic cholecystectomy, possible open, and possible laparoscopic appendectomy (depending on how the appendix looks intraoperatively). 1. Booked for laparoscopic cholecystectomy, possible open, and possible laparoscopic appendectomy 2. NPO 3. IV antibiotics Plan discussed with Plan discussed with: Patient Visit Coding Surgery Date of Service if different f: Jul 16, 2025 Billing Provider: MICHELLE ARTHUR MD Surgery Visit Codes: [id number] INP/OBS CARE(HIGH) MICHELLE ARTHUR MD Jul 16, 2025 12:05
[2025-07-16] MEDS ORDERED: SUCCINYLCHOLINE CHLORIDE 20 MG/ML 10ML VIAL IV ONE (12:27)
[2025-07-16] MEDS ORDERED: fentaNYL CITRATE 100 MCG/2 ML VL ONE (12:34)
[2025-07-16] MEDS ORDERED: PROPOFOL 10 MG/ML 20 ML IV ONE (12:34)
[2025-07-16] MEDS ORDERED: HYDROmorphone HCL 2 MG/ML VL/or syr ONE (12:35)
[2025-07-16] MEDS ORDERED: ONDANSETRON HCL 4 MG/2 ML VIAL ONE (13:33)
[2025-07-16] MEDS: BUPIVACAINE 0.25% INJ 50ML VIAL ONE (13:35)
[2025-07-16] MEDS ORDERED: SUGAMMADEX 200mg/2ml Vial (100MG/ML) IV ONE (16:05)
[2025-07-16] MEDS ORDERED: ACETAMINOPHEN IV 1000 MG/100ML (10MG/ML) IV PRN (16:30)
[2025-07-16] MEDS ORDERED: ONDANSETRON HCL 4 MG/2 ML VIAL IV PRN (16:30)
[2025-07-16] MEDS ORDERED: HYDROmorphone HCL 2 MG/ML VL/or syr IV PRN (16:30)
--- NOTE | 2025-07-16 16:39 | DVHOP2 ---
Operative Report - 2 Report Details Date: 07/16/25 Preop Diagnosis: Acute cholecystitis with possible acute appendicitis Postop Diagnosis: Acute cholecystitis Surgeon: Mohan Hutchinson MD Anesthesiologist: Anesthesia: General Drains: 19 Maltese round channel drain Consent: The patient was informed of the risks and benefits of the procedure. These include but are not limited to complications of anesthesia, postoperative infection, incomplete relief of symptoms, recurrence of symptoms, damage to blood vessels, nerves and tendons, deep venous thrombosis, pulmonary embolism and possible need for repeat surgery in the future. Complications: None Estimated Blood Loss: 100 mL Findings: Severely inflamed acute and gangrenous cholecystitis, omentum and bowel draped over gallbladder, right lateral abdominal wall adhesions Indications for Surgery: Acute cholecystitis Name of Procedure Performed Laparoscopic cholecystectomy Procedure Details Procedure Details: Upon arrival to the operating room the patient was transferred to the operating table and placed in the supine position with arms extended. General endotracheal anesthesia was induced. Time-out was observed. Patient was prepped and draped in the standard sterile surgical fashion with chlorhexidine. I then made a curvilinear infraumbilical incision and carried out the dissection to fascia. I then grasped the umbilical stalk with Gogo clamps and walked it to its base. I then gained entry into the peritoneal cavity using Cyr technique. I then placed a [id number] retention suture with a 0 Vicryl at the fascia entry site. Cyr trocar was then placed and peritoneal cavity was insufflated to 15 mmHg, with toleration. I then placed the camera inside the peritoneal cavity and looked at the entry site for any signs of injury, there were none. I noticed some adhesions in the right flank, and omentum to abdominal wall. Patient was then placed in the reverse Trendelenburg [id number] position. I then placed 3 additional 5 mm trocars under direct vi sualization in the epigastric area right midclavicular in the subcostal position, and right flank. I then directed my attention to the right upper quadrant, were the liver and gallbladder were identified. The gallbladder was severely and acutely inflamed with omentum draped over it, pulling bowel onto the gallbladder. D&G grasper was used to grasp the gallbladder at the dome. Th en the adhesions were taken down with caution both bluntly and with electrocautery. Once the omentum and bowel were completely peeled off the gallbladder I was able to identify the infundibulum. Due to the severe inflammation and gallbladder distention graspers kept slipping off. I then decided to decompress the gallbladder with a needle syringe. 80 cc of thick dark green bile was extracted. Then I placed a grasper at the fundus of the gallbladder retracting it cephalad and onto the right shoulder. A 2nd grasper was placed at the infundibulum, retracting the gallbladder laterally. 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 I then was able to achieve the critical view of safety. Both artery and duct were double clipped proximally and once distally. Both artery and duct were transected. I then started dissecting carefully the gallbladder from the liver bed and I found a posterior cystic artery branch that I also clipped and cut. Then I proceeded to dissect the gallbladder off of the liver bed with electrocautery, approximately jail through the removal of the gallbladder from the liver plate I encountered gangrenous gallbladder wall posteriorly. The gallbladder wall at this spots started to rip. We had some bile spillage. The gallbladder was completely off the liver bed it was placed in the Endo-Catch bag and removed out of the peritoneal cavity through the umbilical site. The fascia at the umbilical site had to be in large slightly. I then took a look at the gallbladder fossa the were some raw surfaces that were oozing and there were cauterized the liver had a spot at its dome that was also using, was also cauterized. I performed copious irrigation serially until effluent was clear. Given the increased vascularity that I encountered freeing the gallbladder from the fossa I decided to place Surgicel snow on the fossa. Clips in the duct and artery were in place. I also decided to leave a 19 Maltese round channel drain in place, due to the difficult nature of the dissection coupled with the gangrene encountered on the posterior gallbladder wall. The drain was placed under the liver exiting through the lateral most port. It was secured in place with a 2 0 nylon stitch. This concluded the surgical portion of the gallbladder. I then decided to take a look at the appendix given the CT showing a possible early appendicitis. Patient was placed in the Trendelenburg position right side up. Appendix was immediately identified and it was not inflamed. Appendix was normal appearing. Appendectomy was not done. I then took another look at the gallbladder fossa no bleeding was noted drain was in place. At this point the 2 5 mm trocars were removed under direct vision, no bleeding from the abdominal wall. Roderick trocar was then removed the previous [id number] retention stitch was closed. Given that I had to enlarge the fascial opening to remove the gallbladder I needed to place 2 additional interrupted 0 Vicryl stitches to close the inferior edge of the fascial defect. All counts complete and correct at the end of the procedure. Patient tolerated the procedure well and was transferred to PACU in stable condition. Specimen: Gallbladder and contents Condition Stable Disposition Still a Patient MOHAN ARTHUR MD Jul 16, 2025 16:39
--- NOTE | 2025-07-16 18:44 | DVHPNRES ---
Progress Note Date Seen: Jul 16, 2025 Resident Creating Document: FELIX CALDERON RESIDENT Medical Necessity Reason Pt with a Central, PICC or Fol: No Subjective Review of Systems Fareed Herr is a 60-year-old male presented to the ED with a chief complaint of pain abdomen since 3 days. The patient mentions he had pain in the abdomen mostly in the right lower abdomen, radiating to the right upper abdomen and epigastric area. The patient mentions that the pain increased with eating, also has had decreased appetite in the last 3 days because of the pain. Describes the pain as an 8/10 in intensity and a dull ache. He states that the pain is mostly at night and he can not sleep because of the pain. He took Tylenol but it did not relieve the pain. The patient also mentions he has not had a bowel movement in the last 3 days and right side of the abdomen feels hard and warm. He had some fever at home which was unrecorded. He has a history of similar abdominal pain 2 months back which resolved on its own in a couple of days. Past medical history: None Past surgical history: None Social & Personal history: Lives at home with family Smoking: Denies Alcohol: Occasional consumption, quit 20 years back Drugs: Denies Allergies: No known allergies Past Surgical History: None Smoke: No Drugs: None Patient seen and examined at bedside. Patient is alert and oriented to time, place person and responding to all questions. Eyes: No Pain, No Vision change, No Conjunctivae inflammation, No Eyelid inflammation, No Redness ENT: No Ear pain, No Ear discharge, No Nose pain, No Nose discharge, No Nose congestion, No Mouth pain, No Mouth swelling, No Throat pain, No Throat swelling Cardiovascular: No Chest Pain, No Palpitations, No Orthopnea, No Paroxysmal No Dyspnea, No Edema, No Lt Headedness Respiratory: No Cough, No Dry, No Shortness of breath, No SOB with exertion, No Wheezing, No Hemoptysis, No Pleuritic Pain, No Sputum Gastrointestinal: No Nausea, No Vomiting, Abdominal Pain, No Diarrhea, Constipation, No Melena, No Hematochezia Genitourinary: No Dysuria, No Frequency, No Incontinence, No Hematuria, No Retention Gastrointestinal: Abdominal Pain, Constipation Allergies: Coded Allergies: NO KNOWN ALLERGIES (Unverified , 07/14/25) 07/15- On evaluation today, the patient stated that the abdominal pain had reduced. White count today was 15.5. He was explained about recurrent symptoms if he does not get the surgery, but the patient stated that he would not like to have the surgery and would want to proceed only with IV antibiotics. Patient will possibly be discharged tomorrow if he is clinically stable. 07/16- The patient was seen at bedside today. He stated that his abdominal pain had reduced, but he had a fever spike of 99.7 yesterday and white count today was 12.4. The complications of acute cholecystitis if the patient does not get surgery were explained to him and patient agreed to get surgery. Lap Cholecystectomy was performed today. Objective vital signs Vital Sign Date Time Temp Pulse Resp B/P (MAP) Pulse Ox O2 Delivery O2 Flow Rate FiO2 07/16/25 17:57 76 16 149/82 (104) 96 07/16/25 16:50 Room Air 0 96 07/16/25 16:15 97.6 97.6 Total Intake and Output 07/15/25 07/15/25 07/16/25 15:00 23:00 07:00 Intake Total 1120 ml 0 ml 480 ml Balance 1120 ml 0 ml 480 ml medications Current Medications Medications Dose Ordered Sig/Petey Route Start Time Stop Time Status Last Admin Dose Admin Sodium Chloride 1,000 ml @ 60 mls/hr [id number] IV 07/14/25 15:00 07/16/25 00:20 60 MLS/HR Ondansetron HCl 4 mg Q4HP PRN IV 07/14/25 15:00 Acetaminophen 650 mg Q6HP PRN PO 07/14/25 15:00 Nitroglycerin 0.4 mg Q5MINP PRN SL 07/14/25 15:00 Morphine Sulfate 2 mg Q30M PRN IV 07/14/25 15:00 Ceftriaxone Sodium 50 ml @ 100 mls/hr DAILY@09 IV 07/15/25 09:00 07/16/25 10:59 100 MLS/HR Metronidazole 100 ml @ 100 mls/hr Q8H IV 07/16/25 15:00 Examination General Appearance: Cooperative. Well developed. Well nourished. NAD Head Exam: Normal inspection Neck Exam: Normal inspection. Non-tender. Normal alignment Pulmonary/Respiratory: Chest non-tender. Clear bilateral breath sounds, no crackles, no wheezing. Cardiovascular/Chest: Regular rate and rhythm. No murmurs. No JVD. Peripheral Pulses: 2+ Radial (R). 2+ Radial (L). 2+ Pedal (R). 2+ Pedal (L) Abdominal Exam: Tenderness in the right upper quadrant, Normal bowel sounds no visible veins, No hepatospenomegaly. No masses Ankle Exam: Negative ankle edema Lower extremities: Negative lower extremity edema Neuro/Mental Status: A&O x4. Coherent. Thoughts/Psych: Normal thought pattern. Appropriate mood and affect. Good judgement and insight Skin Exam: Normal inspection. Normal color. Warm. Dry laboratory and microbiology Laboratory Tests 07/16/25 05:40 Test 07/16/25 05:40 Range/Units Serum Glucose 92 74-106 mg/dL Labs and/or images reviewed: Labs reviewed by me, Image(s) reviewed by me Problem List/Assessment/Plan Problem List/Assessment/Plan Acute calculous cholecystitis s/p lap cholecystectomy Gangrenous cholecystitis -CT abdomen/pelvis-Distended gallbladder containing multiple peripherally calcified gallstones. Mild adjacent inflammatory stranding. Gallbladder wall appears thickened. -Gall bladder ultrasound- Gallstones with gallbladder wall thickening. Sonographic Wilson's reportedly positive. -white count 12.4 -pain management -IV antibiotics ceftriaxone and flagyl -clear liquids for now -keep NPO after midnight -lap cholecystectomy on 07/16/2025 Possible Acute appendicitis -CT abdomen/pelvis-Appendix is mildly thickened. No definite periappendiceal stranding visualized. Early acute appendicitis can not be excluded in the appropriate clinical setting, given the thickened appendix. -as above PUD prophylaxis: not Indicated DVT prophylaxis: Not indicated Goals of care: Full code, discussed for >23 minutes Plan discussed with patient Plan discussed with Dr Contreras Plan discussed with: Patient My Orders My Orders Orders - FELIX CALDERON RESIDENT Procedure Category Date Status Time Metronidazole PHA 07/16/25 In Process 500mg/100ml (Flagyl 15:00 FELIX CALDERON RESIDENT Jul 16, 2025 18:44
[2025-07-17] VITALS (8 sets, daily range): BP systolic 118–140; BP diastolic 68–84; PULSE 63–71; RESP 16–19; TEMP 97.7–98.2; O2SAT 94–98
[2025-07-17 06:32] LABS: Hematocrit 36.8 % (41.0-53.0); Hemoglobin 12.5 g/dL (13.5-17.5); Mean Corpuscular Hemoglobin 28.0 pg (28.0-32.0); Mean Corpuscular Volume 82.4 fL (80.0-100.0); Nucleated Red Blood Cells % 0.0 %
[2025-07-17 07:04] LABS: Alanine Aminotransferase 78 U/L (7-40); Albumin 3.4 g/dL (3.2-4.8); Alkaline Phosphatase 111 U/L (46-116); Anion Gap 11 (5-15); BUN/Creatinine Ratio 18.0 (10.0-20.0); Bilirubin, Total 0.6 mg/dL (0.2-1.0); Blood Urea Nitrogen 11 mg/dL (9-23); Calcium 8.3 mg/dL (8.7-10.4); Carbon Dioxide 23 mmol/L (20-31); Chloride 102 mmol/L (98-107); Glucose 149 mg/dL (74-106); Potassium 3.8 mmol/L (3.5-5.1); Sodium 136 mmol/L (136-145); Total Protein 6.4 g/dL (5.7-8.2)
--- NOTE | 2025-07-17 10:48 | DVHPN2 ---
Progress Note - Surgical Date Seen: Jul 17, 2025 Post op day Post op day: 1 Subjective Patient reports: Feels better (Patient very thankful this morning, states that his pain has improved greatly after the surgery, tolerated clear liquid diet, afebrile with vital stable) Review of Systems: Deferred Objective Vital signs Vital Sign Date Time Temp Pulse Resp B/P (MAP) Pulse Ox O2 Delivery O2 Flow Rate FiO2 07/17/25 08:30 98.1 69 19 140/80 (100) 96 98.1 07/16/25 20:00 Nasal Cannula* 2 28 Total Intake and Output 07/16/25 07/16/25 07/17/25 14:59 22:59 06:59 Intake Total 175 ml 0 ml 425 ml Output Total 990 ml Balance 175 ml 0 ml -565 ml Medications Current Medications Medications Dose Ordered Sig/Petey Route Start Time Stop Time Status Last Admin Dose Admin Sodium Chloride 1,000 ml @ 60 mls/hr [id number] IV 07/14/25 15:00 07/16/25 00:20 60 MLS/HR Ondansetron HCl 4 mg Q4HP PRN IV 07/14/25 15:00 Acetaminophen 650 mg Q6HP PRN PO 07/14/25 15:00 Nitroglycerin 0.4 mg Q5MINP PRN SL 07/14/25 15:00 Morphine Sulfate 2 mg Q30M PRN IV 07/14/25 15:00 Ceftriaxone Sodium 50 ml @ 100 mls/hr DAILY@09 IV 07/15/25 09:00 07/17/25 10:26 100 MLS/HR Metronidazole 100 ml @ 100 mls/hr Q8H IV 07/16/25 15:00 07/17/25 06:45 100 MLS/HR Laboratory Laboratory Tests 07/17/25 05:34 Test 07/17/25 05:34 Range/Units Serum Glucose 149 H 74-106 mg/dL Examination: GENERAL:Normal, HEENT:Normal (No icterus), ABDOMEN:Normal (Nondistended, incisions with skin glue, some infraumbilical incision ecchymosis, soft, depressible, mild right upper quadrant tenderness, right upper quadrant drain in place with some sanguinous output (clots)) Labs and/or images reviewed: Labs reviewed by me (Leukocytosis down trending 11.1 from 12.4) Problem List/Assessment/Plan Assessment and Plan Mr. Herr is a 60-year-old male who presented on July 14 to the ED due to abdominal pain. I diagnosed him with acute cholecystitis, initially patient did not want any surgical management and wanted to treated nonoperatively with antibiotics. Given that condition did not improve I again offered surgery, and currently he is postop day 1 from laparoscopic cholecystectomy. During the surgery I also looked at the appendix given the it appeared a little bit inflamed on the CT scan, but it was normal. 07/16: Laparoscopic cholecystectomy acute gangrenous cholecystitis, drain was left in place 1. Okay for low-fat diet 2. Pain and nausea control 3. Antibiotics for 48 hours per surgery 4. Out of bed and ambulate 5. CBC and CMP out for tomorrow a.m. 6. MiraLax daily added 7. We will re-evaluate tomorrow My Orders My Orders Orders - MICHELLE ARTHUR MD Procedure Category Date Status Time Obtain Consent For: ORDERS 07/16/25 Transmitted 11:59 Obtain Consent For BOBBY 07/16/25 In Process Anesthesia 11:59 Clear Liq Diet DIET 07/16/25 Transmitted Dinner Adam Drain To Closed BOBBY 07/16/25 In Process Suction 16:19 Plan discussed with Plan discussed with: Patient Visit Coding Surgery Date of Service if different f: Jul 17, 2025 Billing Provider: MICHELLE ARTHUR MD Surgery Visit Codes: [id number] INP/OBS CARE(HIGH) MICHELLE ARTHUR MD Jul 17, 2025 10:48
[2025-07-17] MEDS ORDERED: SEVOFLURANE 250 ML SOL IN ONE (12:15)
[2025-07-17] MEDS: POLYETHYLENE GLYCOL 17 GM PWDR PO SCH (12:36)
--- NOTE | 2025-07-17 13:41 | DVHPNRES ---
Progress Note Date Seen: Jul 17, 2025 Resident Creating Document: FELIX CALDERON RESIDENT Medical Necessity Reason Pt with a Central, PICC or Fol: No Subjective Review of Systems Fareed Herr is a 60-year-old male presented to the ED with a chief complaint of pain abdomen since 3 days. The patient mentions he had pain in the abdomen mostly in the right lower abdomen, radiating to the right upper abdomen and epigastric area. The patient mentions that the pain increased with eating, also has had decreased appetite in the last 3 days because of the pain. Describes the pain as an 8/10 in intensity and a dull ache. He states that the pain is mostly at night and he can not sleep because of the pain. He took Tylenol but it did not relieve the pain. The patient also mentions he has not had a bowel movement in the last 3 days and right side of the abdomen feels hard and warm. He had some fever at home which was unrecorded. He has a history of similar abdominal pain 2 months back which resolved on its own in a couple of days. Past medical history: None Past surgical history: None Social & Personal history: Lives at home with family Smoking: Denies Alcohol: Occasional consumption, quit 20 years back Drugs: Denies Allergies: No known allergies Patient seen and examined at bedside. Patient is alert and oriented to time, place person and responding to all questions. Eyes: No Pain, No Vision change, No Conjunctivae inflammation, No Eyelid inflammation, No Redness ENT: No Ear pain, No Ear discharge, No Nose pain, No Nose discharge, No Nose congestion, No Mouth pain, No Mouth swelling, No Throat pain, No Throat swelling Cardiovascular: No Chest Pain, No Palpitations, No Orthopnea, No Paroxysmal No Dyspnea, No Edema, No Lt Headedness Respiratory: No Cough, No Dry, No Shortness of breath, No SOB with exertion, No Wheezing, No Hemoptysis, No Pleuritic Pain, No Sputum Gastrointestinal: No Nausea, No Vomiting, Abdominal Pain, No Diarrhea, Constipation, No Melena, No Hematochezia Genitourinary: No Dysuria, No Frequency, No Incontinence, No Hematuria, No Retention Gastrointestinal: Abdominal Pain, Constipation Allergies: Coded Allergies: NO KNOWN ALLERGIES (Unverified , 07/14/25) 07/15- On evaluation today, the patient stated that the abdominal pain had reduced. White count today was 15.5. He was explained about recurrent symptoms if he does not get the surgery, but the patient stated that he would not like to have the surgery and would want to proceed only with IV antibiotics. Patient will possibly be discharged tomorrow if he is clinically stable. 07/16- The patient was seen at bedside today. He stated that his abdominal pain had reduced, but he had a fever spike of 99.7 yesterday and white count today was 12.4. The complications of acute cholecystitis if the patient does not get surgery were explained to him and patient agreed to get surgery. Lap Cholecystectomy was performed today. 07/17- The patient was seen at bedside today. Patient stated that he is doing well post the surgery. He has passed gas. White count today is 11.1. He was seen by surgery and recommended to continue IV antibiotics for 48 hours post surgery. Miralax was added. Patient was tolerating liquid diet well, can be advanced to soft mechanical diet. He was asked to start ambulating. Objective vital signs Vital Sign Date Time Temp Pulse Resp B/P (MAP) Pulse Ox O2 Delivery O2 Flow Rate FiO2 07/17/25 12:52 97.7 66 18 125/70 (88) 95 97.7 07/17/25 08:00 Nasal Cannula* 2 28 Total Intake and Output 07/16/25 07/16/25 07/17/25 15:00 23:00 07:00 Intake Total 175 ml 0 ml 425 ml Output Total 990 ml Balance 175 ml 0 ml -565 ml medications Current Medications Medications Dose Ordered Sig/Petey Route Start Time Stop Time Status Last Admin Dose Admin Sodium Chloride 1,000 ml @ 60 mls/hr [id number] IV 07/14/25 15:00 07/16/25 00:20 60 MLS/HR Ondansetron HCl 4 mg Q4HP PRN IV 07/14/25 15:00 Acetaminophen 650 mg Q6HP PRN PO 07/14/25 15:00 Nitroglycerin 0.4 mg Q5MINP PRN SL 07/14/25 15:00 Morphine Sulfate 2 mg Q30M PRN IV 07/14/25 15:00 Ceftriaxone Sodium 50 ml @ 100 mls/hr DAILY@09 IV 07/15/25 09:00 07/17/25 10:26 100 MLS/HR Metronidazole 100 ml @ 100 mls/hr Q8H IV 07/16/25 15:00 07/17/25 06:45 100 MLS/HR Polyethylene Glycol 17 gm DAILY PO 07/17/25 11:00 07/17/25 12:36 17 GM Examination General Appearance: Cooperative. Well developed. Well nourished. NAD Head Exam: Normal inspection Neck Exam: Normal inspection. Non-tender. Normal alignment Pulmonary/Respiratory: Chest non-tender. Clear bilateral breath sounds, no crackles, no wheezing. Cardiovascular/Chest: Regular rate and rhythm. No murmurs. No JVD. Peripheral Pulses: 2+ Radial (R). 2+ Radial (L). 2+ Pedal (R). 2+ Pedal (L) Abdominal Exam: mild abdominal tenderness, Nondistended, incisions with skin glue, some infraumbilical incision ecchymosis, soft, depressible, mild right upper quadrant tenderness, right upper quadrant drain in place with some sanguinous output (clots) Ankle Exam: Negative ankle edema Lower extremities: Negative lower extremity edema Neuro/Mental Status: A&O x4. Coherent. Thoughts/Psych: Normal thought pattern. Appropriate mood and affect. Good judgement and insight Skin Exam: Normal inspection. Normal color. Warm. Dry laboratory and microbiology Laboratory Tests 07/17/25 05:34 Test 07/17/25 05:34 Range/Units Serum Glucose 149 H 74-106 mg/dL Labs and/or images reviewed: Labs reviewed by me, Image(s) reviewed by me Problem List/Assessment/Plan Problem List/Assessment/Plan Acute calculous cholecystitis s/p lap cholecystectomy Gangrenous cholecystitis -CT abdomen/pelvis-Distended gallbladder containing multiple peripherally calcified gallstones. Mild adjacent inflammatory stranding. Gallbladder wall appears thickened. -Gall bladder ultrasound- Gallstones with gallbladder wall thickening. Sonographic Wilson's reportedly positive. -white count 11.1 -pain management -IV antibiotics ceftriaxone and flagyl -clear liquids for now -keep NPO after midnight -lap cholecystectomy on 07/16/2025 -alistair drain Possible Acute appendicitis -CT abdomen/pelvis-Appendix is mildly thickened. No definite periappendiceal stranding visualized. Early acute appendicitis can not be excluded in the appropriate clinical setting, given the thickened appendix. -as above PUD prophylaxis: not Indicated DVT prophylaxis: Not indicated Goals of care: Full code, discussed for >23 minutes Plan discussed with patient Plan discussed with Dr Contreras Plan discussed with: Patient Dietary Evaluation Review Comments: Pt is interested in making dietary changes. Recommend Low fat low cholesterol low sodium diet Increase physical activities Expected Outcomes/Goals: gradual wt loss FELIX CALDERON RESIDENT Jul 17, 2025 13:41
[2025-07-18 05:00] VITALS: BP 115/68; PULSE 57; RESP 18; TEMP 98.1; O2SAT 94
[2025-07-18 08:07] LABS: Hematocrit 36.4 % (41.0-53.0); Hemoglobin 12.3 g/dL (13.5-17.5); Mean Corpuscular Hemoglobin 28.0 pg (28.0-32.0); Mean Corpuscular Volume 82.8 fL (80.0-100.0); Nucleated Red Blood Cells % 0.0 %
[2025-07-18 08:27] LABS: Albumin 3.2 g/dL (3.2-4.8); Alkaline Phosphatase 90 U/L (46-116); Anion Gap 11 (5-15); BUN/Creatinine Ratio 16.9 (10.0-20.0); Blood Urea Nitrogen 10 mg/dL (9-23); Carbon Dioxide 25 mmol/L (20-31); Chloride 105 mmol/L (98-107); Sodium 141 mmol/L (136-145); Total Protein 6.0 g/dL (5.7-8.2)
[2025-07-18 08:33] LABS: Alanine Aminotransferase 54 U/L (7-40); Calcium 7.8 mg/dL (8.7-10.4); Glucose 109 mg/dL (74-106); Potassium 3.5 mmol/L (3.5-5.1)
[2025-07-18 08:38] LABS: Bilirubin, Total 0.4 mg/dL (0.2-1.0)
[2025-07-18 09:00] VITALS: BP 108/72; PULSE 63; RESP 20; TEMP 98.1; O2SAT 96
--- NOTE | 2025-07-18 12:26 | DVHPN2 ---
Progress Note - Surgical Date Seen: Jul 18, 2025 Post op day Post op day: 2 Subjective Patient reports: Feels better (Patient doing well, tolerating diet, no complaints of abdominal pain) Review of Systems: Deferred Objective Vital signs Vital Sign Date Time Temp Pulse Resp B/P (MAP) Pulse Ox O2 Delivery O2 Flow Rate FiO2 07/18/25 09:00 98.1 63 20 108/72 (84) 96 98.1 07/18/25 08:00 Nasal Cannula* 2 28 Total Intake and Output 07/17/25 07/17/25 07/18/25 15:00 23:00 07:00 Intake Total 50 ml 500 ml 710 ml Output Total 850 ml 1600 ml Balance 50 ml -350 ml -890 ml Medications Current Medications Medications Dose Ordered Sig/Petey Route Start Time Stop Time Status Last Admin Dose Admin Sodium Chloride 1,000 ml @ 60 mls/hr [id number] IV 07/14/25 15:00 07/18/25 02:31 60 MLS/HR Ondansetron HCl 4 mg Q4HP PRN IV 07/14/25 15:00 Acetaminophen 650 mg Q6HP PRN PO 07/14/25 15:00 Nitroglycerin 0.4 mg Q5MINP PRN SL 07/14/25 15:00 Morphine Sulfate 2 mg Q30M PRN IV 07/14/25 15:00 Ceftriaxone Sodium 50 ml @ 100 mls/hr DAILY@09 IV 07/15/25 09:00 07/18/25 09:22 100 MLS/HR Metronidazole 100 ml @ 100 mls/hr Q8H IV 07/16/25 15:00 07/18/25 06:29 100 MLS/HR Polyethylene Glycol 17 gm DAILY PO 07/17/25 11:00 07/18/25 09:22 17 GM Laboratory Laboratory Tests 07/18/25 07:09 Test 07/18/25 07:09 Range/Units Serum Glucose 109 H 74-106 mg/dL Examination: GENERAL:Normal, ABDOMEN:Normal (Nondistended, incision sites with skin glue in place, right upper quadrant drain in place with serosanguineous output. No tenderness) Labs and/or images reviewed: Labs reviewed by me (Hemoglobin stable, leukocytosis resolved) Problem List/Assessment/Plan Assessment and Plan Mr. Herr is a 60-year-old male who presented on July 14 to the ED due to abdominal pain. I diagnosed him with acute cholecystitis, initially patient did not want any surgical management and wanted to treated nonoperatively with antibiotics. Given that condition did not improve I again offered surgery, and currently he is postop day 2 from laparoscopic cholecystectomy. During the surgery I also looked at the appendix given the it appeared a little bit inflamed on the CT scan, but it was normal. 07/16: Laparoscopic cholecystectomy acute gangrenous cholecystitis, drain was left in place Interval: Patient doing well, tolerating diet, ambulating, hemoglobin stable. Patient patient is cleared for discharge from surgical standpoint. 1. Follow-up at surgery Clinic with Dr. Wasserman in 1 week 2. Patient needs to get discharged with the drain, please provide drain education 3. Low-fat diet 4. No lifting over 10 lb for at least 6 weeks 5. Shower is okay, just let soap and water run over incision sites 6. No baths or swimming in bodies of water for at least 2 weeks My Orders My Orders Orders - MICHELLE ARTHUR MD Procedure Category Date Status Time D/C Hitesh ROSALES 07/18/25 In Process 11:54 Plan discussed with Plan discussed with: Patient Visit Coding Surgery Date of Service if different f: Jul 18, 2025 Billing Provider: MICHELLE ARTHUR MD Surgery Visit Codes: [id number] INP/OBS CARE(HIGH) MICHELLE ARTHUR MD Jul 18, 2025 12:26
[2025-07-18 13:00] VITALS: BP 137/78; PULSE 63; RESP 20; TEMP 98.5; O2SAT 95
[2025-07-18] MEDS ORDERED: AUG875T PO (13:32)
[2025-07-18] MEDS ORDERED: HYDR-4902 PO (13:32)
--- NOTE | 2025-07-18 14:02 | DVHDSRES ---
Discharge Summary Date of Admission Resident Creating Document: FELIX CALDERON RESIDENT Jul 14, 2025 at 14:48 Date of Discharge: Jul 18, 2025 Admitting Diagnosis acute cholecystitis Labs/Diagnostic Data: Laboratory Results Test 07/18/25 07:09 07/16/25 05:40 07/15/25 08:25 07/14/25 19:44 White Blood Count 9.5 10^3/uL (4.4-10.8) Red Blood Count 4.40 10^6/uL (4.5-5.90) Hemoglobin 12.3 g/dL (13.5-17.5) Hematocrit 36.4 % (41.0-53.0) Mean Corpuscular Volume 82.8 fL (80.0-100.0) Mean Corpuscular Hemoglobin 28.0 pg (28.0-32.0) Mean Corpuscular Hemoglobin Concent 33.8 g/dL (32.0-36.0) Red Cell Distribution Width 13.8 % (11.8-14.3) Platelet Count 272 10^3/uL (140-450) Mean Platelet Volume 8.1 fL (6.9-10.8) Neutrophils (%) (Auto) 75.4 % (37.0-80.0) Lymphocytes (%) (Auto) 17.3 % (10.0-50.0) Monocytes (%) (Auto) 7.1 % (0.0-12.0) Eosinophils (%) (Auto) 0.1 % (0.0-7.0) Basophils (%) (Auto) 0.1 % (0.0-2.0) Neutrophils # (Auto) 7.1 10 ^3/uL (1.6-8.6) Lymphocytes # (Auto) 1.6 10 ^3/uL (0.4-5.4) Monocytes # (Auto) 0.7 10 ^3/uL (0-1.3) Eosinophils # (Auto) 0 10 ^3/uL (0-0.8) Basophils # (Auto) 0 10 ^3/uL (0-0.2) Nucleated Red Blood Cells 0.0 % Sodium Level 141 mmol/L (136-145) Potassium Level 3.5 mmol/L (3.5-5.1) Chloride Level 105 mmol/L (98-107) Carbon Dioxide Level 25 mmol/L (20-31) Anion Gap 11 (5-15) Blood Urea Nitrogen 10 mg/dL (9-23) Creatinine 0.59 mg/dL (0.700-1.30) Glomerular Filtration Rate Calc 112 mL/min (>90) BUN/Creatinine Ratio 16.9 (10.0-20.0) Serum Glucose 109 mg/dL (74-106) Calcium Level 7.8 mg/dL (8.7-10.4) Total Bilirubin 0.4 mg/dL (0.2-1.0) Aspartate Amino Transferase (AST) 30 U/L (13-40) Alanine Aminotransferase (ALT) 54 U/L (7-40) Alkaline Phosphatase 90 U/L (46-116) Total Protein 6.0 g/dL (5.7-8.2) Albumin 3.2 g/dL (3.2-4.8) Magnesium Level 2.0 mg/dL (1.6-2.6) Influenza Type A Antigen Negative (Negative) Influenza Type B Antigen Negative (Negative) SARS-CoV-2 Antigen (Rapid) Negative (NEGATIVE) Prothrombin Time 12.7 sec (9.3-11.8) Prothrombin Time INR 1.22 (0.9-1.15) Activated Partial Thromboplast Time 34.3 SEC (24.5-34.5) Test 07/14/25 16:04 07/14/25 09:10 Lactic Acid Level 1.4 mmol/L (0.4-2.0) Hemoglobin A1c 5.4 % A1C (<5.7) Direct Bilirubin 0.8 mg/dL (<0.3) Other Laboratory Tests 07/18/25 07:09 Brief Hx & Hospital Course: Fareed Herr is a 60-year-old male presented to the ED with a chief complaint of pain abdomen since 3 days. The patient mentions he had pain in the abdomen mostly in the right lower abdomen, radiating to the right upper abdomen and epigastric area. The patient mentions that the pain increased with eating, also has had decreased appetite in the last 3 days because of the pain. Describes the pain as an 8/10 in intensity and a dull ache. He states that the pain is mostly at night and he can not sleep because of the pain. He took Tylenol but it did not relieve the pain. The patient also mentions he has not had a bowel movement in the last 3 days and right side of the abdomen feels hard and warm. He had some fever at home which was unrecorded. He has a history of similar abdominal pain 2 months back which resolved on its own in a couple of days. White count today was 18.1 Surgery was consulted and patient was explained about the need for surgery, but he initially refused surgery and wanted to be treated with just IV antibiotics. So IV antibiotics were started for him. His white count was still high the next day, and he had abdominal pain and a fever spike, so he was explained the need of the surgery again. Patient agreed to get lap cholecystectomy which was done on 07/16/2025. Doing the procedure patient was found to have gangrenous posterior wall of gallbladder, and KARYNA drain was placed postprocedure with an abdominal binder. The patient was doing well post surgery. He passed gas and had a bowel movement the day after the surgery. IV antibiotics were continued and MiraLax was added. On evaluation today, patient has been tolerating clear liquids well. We advanced him to full liquids today and he was asked to start ambulating. Surgery cleared the patient for discharge today with a KARYNA drain and asked to follow-up with Dr. Wasserman in 1 week. Surgery recommended Low-fat diet,No lifting over 10 lb for at least 6 weeks,Shower is okay, just let soap and water run over incision sites and No baths or swimming in bodies of water for at least 2 weeks. All medications and recommendations were thoroughly explained to the patient and he demonstrated understanding of the same. All questions were answered and all concerns were addressed. Patient was discharged home in a stable condition. Past medical history: None Past surgical history: None Social & Personal history: Lives at home with family Smoking: Denies Alcohol: Occasional consumption, quit 20 years back Drugs: Denies Allergies: No known allergies General Appearance: Cooperative. Well developed. Well nourished. NAD Head Exam: Normal inspection Neck Exam: Normal inspection. Non-tender. Normal alignment Pulmonary/Respiratory: Chest non-tender. Clear bilateral breath sounds, no crackles, no wheezing. Cardiovascular/Chest: Regular rate and rhythm. No murmurs. No JVD. Peripheral Pulses: 2+ Radial (R). 2+ Radial (L). 2+ Pedal (R). 2+ Pedal (L) Abdominal Exam: mild abdominal tenderness, Nondistended, incisions with skin glue, some infraumbilical incision ecchymosis, soft, depressible, mild right upper quadrant tenderness, right upper quadrant drain in place with some sanguinous output (clots), KARYNA drain insitu Ankle Exam: Negative ankle edema Lower extremities: Negative lower extremity edema Neuro/Mental Status: A&O x4. Coherent. Thoughts/Psych: Normal thought pattern. Appropriate mood and affect. Good judgement and insight Skin Exam: Normal inspection. Normal color. Warm. Dry Operations or Procedures 1.PROCEDURE(s): ABPL - CT AB PEL WO CON-NO ORAL OR IV REASON: colitis ORDER NUMBER(s): [id number], ACCESSION NUMBER(s): [id number] IMPRESSION: 1. Distended gallbladder containing multiple peripherally calcified gallstones. Mild adjacent inflammatory stranding. Gallbladder wall appears thickened. Possible trace pericholecystic fluid. Findings may be seen with acute cholecystitis in the appropriate clinical setting. Ultrasound could be obtained to further characterize. 2. Appendix is mildly thickened. No definite periappendiceal stranding visualized. Early acute appendicitis can not be excluded in the appropriate clinical setting, given the thickened appendix. Correlate with clinical findings. 3. Nonspecific nondilated fluid-filled small bowel loops. Findings may be seen with ileus or enteritis in the appropriate clinical setting. No small bowel obstruction. Critical findings Critical Result: Suspected acute cholecystitis. Thickened appendix, can not exclude early acute appendicitis in the appropriate clinical setting. 2.PROCEDURE(s): GBUS - GALLBLADDER REASON: roscoe ORDER NUMBER(s): [id number], ACCESSION NUMBER(s): [id number] INDICATION: roscoe ; abdominal pain called for acute cholecystitis TECHNIQUE: Multiple real-time sonographic images were obtained of the right upper quadrant. COMPARISON: 07/14/2025 FINDINGS: The liver demonstrates homogenous echotexture without focal mass lesions. The liver measures 17 cm. There is no intrahepatic or extrahepatic ductal dilatation. The common duct measures 6 mm although evaluation is suboptimal given obscuration from bowel gas. Gallstones. The gallbladder wall measures 9 mm and is thickened . Sonographic Wilson's reportedly positive The right kidney measures 10 cm. The right kidney is normal in contour, size, and shape. The echogenicity is normal. There is no hydronephrosis. The pancreas is not well visualized due to overlying bowel gas. IMPRESSION: Gallstones with gallbladder wall thickening. Sonographic Wilson's reportedly positive. Findings can be seen in the setting of acute cholecystitis. 3.PROCEDURE(s): CXRP - CHEST PORTABLE REASON: preop ORDER NUMBER(s): [id number], ACCESSION NUMBER(s): [id number] CHEST RADIOGRAPH Indication: preop Technique: Single frontal view of the chest was obtained Comparison: None FINDINGS: Lines and Tubes: None Lungs: No focal consolidation. Pleura: No effusion. No pneumothorax. Cardiomediastinal contours: Unremarkable Bones: No acute osseous abnormality. IMPRESSION: 1. No acute cardiopulmonary disease. 4.Name of Procedure Performed Laparoscopic cholecystectomy Procedure Details Procedure Details: Upon arrival to the operating room the patient was transferred to the operating table and placed in the supine position with arms extended. General endotracheal anesthesia was induced. Time-out was observed. Patient was prepped and draped in the standard sterile surgical fashion with chlorhexidine. I then made a curvilinear infraumbilical incision and carried out the dissection to fascia. I then grasped the umbilical stalk with Gogo clamps and walked it to its base. I then gained entry into the peritoneal cavity using Cyr technique. I then placed a itstic-xu-cjcri retention suture with a 0 Vicryl at the fascia entry site. Cyr trocar was then placed and peritoneal cavity was insufflated to 15 mmHg, with toleration. I then placed the camera inside the peritoneal cavity and looked at the entry site for any signs of injury, there were none. I noticed some adhesions in the right flank, and omentum to abdominal wall. Patient was then placed in the reverse Trendelenburg [id number] position. I then placed 3 additional 5 mm trocars under direct visualization in the epigastric area right midclavicular in the subcostal position, and right flank. I then directed my attention to the right upper quadrant, were the liver and gallbladder were identified. The gallbladder was severely and acutely inflamed with omentum draped over it, pulling bowel onto the gallbladder. D&G grasper was used to grasp the gallbladder at the dome. Then the adhesions were taken down with caution both bluntly and with electrocautery. Once the omentum and bowel were completely peeled off the gallbladder I was able to identify the infundibulum. Due to the severe inflammation and gallbladder distention graspers kept slipping off. I then decided to decompress the gallbladder with a needle syringe. 80 cc of thick dark green bile was extracted. Then I placed a grasper at the fundus of the gallbladder retracting it cephalad and onto the right shoulder. A 2nd grasper was placed at the infundibulum, retracting the gallbladder laterally. 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 I then was able to achieve the critical view of safety. Both artery and duct were double clipped proximally and once distally. Both artery and duct were transected. I then started dissecting carefully the gallbladder from the liver bed and I found a posterior cystic artery branch that I also clipped and cut. Then I proceeded to dissect the gallbladder off of the liver bed with electrocautery, approximately half-way through the removal of the gallbladder from the liver plate I encountered gangrenous gallbladder wall posteriorly. The gallbladder wall at this spots started to rip. We had some bile spillage. The gallbladder was completely off the liver bed it was placed in the Endo-Catch bag and removed out of the peritoneal cavity through the umbilical site. The fascia at the umbilical site had to be in large slightly. I then took a look at the gallbladder fossa the were some raw surfaces that were oozing and there were cauterized the liver had a spot at its dome that was also using, was also cauterized. I performed copious irrigation serially until effluent was clear. Given the increased vascularity that I encountered freeing the gallbladder from the fossa I decided to place Surgicel snow on the fossa. Clips in the duct and artery were in place. I also decided to leave a 19 Kiswahili round channel drain in place, due to the difficult nature of the dissection coupled with the gangrene encountered on the posterior gallbladder wall. The drain was placed under the liver exiting through the lateral most port. It was secured in place with a 2 0 nylon stitch. This concluded the surgical portion of the gallbladder. I then decided to take a look at the appendix given the CT showing a possible early appendicitis. Patient was placed in the Trendelenburg position right side up. Appendix was immediately identified and it was not inflamed. Appendix was normal appearing. Appendectomy was not done. I then took another look at the gallbladder fossa no bleeding was noted drain was in place. At this point the 2 5 mm trocars were removed under direct vision, no bleeding from the abdominal wall. Roderick trocar was then removed the previous fdyeom-xp-nixum retention stitch was closed. Given that I had to enlarge the fascial opening to remove the gallbladder I needed to place 2 additional interrupted 0 Vicryl stitches to close the inferior edge of the fascial defect. All counts complete and correct at the end of the procedure. Patient tolerated the procedure well and was transferred to PACU in stable condition. Specimen: Gallbladder and contents Condition at Discharge: Fair Final Diagnosis/Problems List Acute calculous cholecystitis s/p lap cholecystectomy Gangrenous cholecystitis Possible Acute appendicitis Discharge Disposition: Home Discharge Instruct/Medications Diet: Regular Diet comment: low fat diet Activity: No Restrictions, As Tolerated Follow Up/Referral: follow up with surgery in 1 week follow up in [place] [facility] follow up with pcp Medications: augmentin 875 mg po bid for 7 days Scheduled Amoxicillin & Pot Clavulanate (Augmentin Tablet), 875 MG PO BID Scheduled PRN Hydrocodone-Acetaminophen (Hydrocodone Bitartrate/AC 5-325 mg), 1 TAB PO Q6HP PRN Discharge Statement: "Patient was advised to return to the ER or call 911 if any headaches, dizziness, shortness of breath, chest pain, abdominal pain, bleeding, fevers, or worsening of medical condition. Patient was counseled about treatment plan, medications, possible side effects, patientverbalized understanding. All questions were answered to the best of my ability. This discharge took greater then 30 minutes in planning, reviewing documentation, counseling the patient, and discussing with other team members." ASSESSMENT ASSESSMENT Assessment Acute calculous cholecystitis s/p lap cholecystectomy Gangrenous cholecystitis Possible Acute appendicitis FELIX CALDERON RESIDENT Jul 18, 2025 14:02
[2025-07-18 16:51] VITALS: BP 137/78; PULSE 63; RESP 20; TEMP 98.5; O2SAT 95
[2025-07-18 17:00] VITALS: BP 145/82; PULSE 75; RESP 20; TEMP 98.8; O2SAT 96
--- NOTE | 2025-07-19 09:48 | ECG ---
[facility] Test Date: 2025-07-16 Test Time: 12:54:45 Pat Name: JOLENE CID Department: Room: 0285 A Gender: M Travel Med Surg Rn: maranda : 1965 Requested By: FELIX CALDERON Order Number: [id number] Reading MD: Braxton Lawson Measurements Intervals [place] Rate: 78 P: 44 SD: 134 QRS: 48 QRSD: 92 T: -5 QT: 382 QTc: 436 Interpretive Statements Sinus rhythm Inferior infarct, age indeterminate Electronically Signed On 07-20-2025 18:18:00 PDT by Braxton Lawson Please click the below link to view image of tracing.
== END 2025-07-18 19:00 | disposition home or self-care (01) | DRG 263 ==
LOC: ER 08:15 → OVERFLOW 14:48 → WEST WING 07-15 14:09
PROVIDERS: ADMIT Internal Medicine Geriatric Medicine; ATTEND Internal Medicine Geriatric Medicine
PROC: 0FT44ZZ Resection of Gallbladder, Percutaneous Endoscopic Approach (ICD-10-PCS; principal; 2025-07-16 13:19)
DX: K80.00 Calculus of gallbladder with acute cholecystitis without obstruction (principal); K82.A1 Gangrene of gallbladder in cholecystitis; K35.80 Unspecified acute appendicitis; K82.8 Other specified diseases of gallbladder; K66.0 Peritoneal adhesions (postprocedural) (postinfection); K59.00 Constipation, unspecified; Z79.899 Other long term (current) drug therapy
CPT/HCPCS: 36415; 71045; 74176; 76705; 80048; 80053; 80076; 83036; 83605; 83735; 85025; 85610; 85730; 87426; 87804; 93005; G0378; J0131; J0330; J0694; J1100; J2405; J2704; J3480; J3490